=== PATIENT | male | born 1970 | race Caucasian/White ===

== ENCOUNTER 2018-06-02 14:55 | Emergency (ER) | payer MEDICAID ==
[~2018-06-02] VITALS: Ht 167.6 cm; Wt 96.0 kg
[~2018-06-02 14:55] MED LIST: NO MEDS
[2018-06-02 14:58] VITALS: BP 180/90; PULSE 87; RESP 16; Ht 167.6 cm; Wt 96.0 kg
[2018-06-02] MEDS ORDERED: IBUP-1542 PO (16:59)
--- NOTE | 2018-06-02 17:02 | ERD ---
ER Documentation Chief Complaint Chief Complaint DYSURIA X 3 DAYS HPI 47-year-old male presents with sensation of dysuria for last 3 days. Denies ear discharge, blood, fevers, vomiting, abdominal pain, flank pain. ROS All systems reviewed and are negative except as per history of present illness. Medications Home Meds Active Scripts Ibuprofen* (Motrin*) 600 Mg Tab, 600 MG PO Q6, #15 TAB Prov:NARESH RUBIN MD 06/02/18 Reported Medications [No Meds] No Conflict Check 02/19/10 Allergies Allergies: Coded Allergies: No Known Allergies (Verified Allergy, Mild, 02/19/10) PMhx/Soc History of Surgery: No Anesthesia Reaction: No Hx Neurological Disorder: No Hx Respiratory Disorders: No Hx Cardiac Disorders: No Hx Psychiatric Problems: No Hx Miscellaneous Medical Probl: No Hx Alcohol Use: No Hx Substance Use: No Hx Tobacco Use: No FmHx Family History: No diabetes, No coronary disease, No other Physical Exam Vitals Vital Signs Date Temp Pulse Resp B/P (MAP) Pulse Ox O2 O2 Flow FiO2 Time Delivery Rate 06/02/18 97.7 87 16 180/90 97 14:58 (120) Physical Exam Const: No acute distress Head: Atraumatic Eyes: Normal Conjunctiva ENT: Normal External Ears, Nose and Mouth. Neck: Full range of motion. No meningismus. Resp: Clear to auscultation bilaterally Cardio: Regular rate and rhythm, no murmurs Abd: Soft, non tender, non distended. Normal bowel sounds. General exam-testicles nontender descended normal size bilaterally. No penile discharge. No external genital lesions. Skin: No petechiae or rashes Back: No midline or flank tenderness Ext: No cyanosis, or edema Neur: Awake and alert Psych: Normal Mood and Affect Results 24 hrs Laboratory Tests Test 06/02/18 15:43 06/02/18 16:54 Urine Color YELLOW Urine Clarity CLEAR Urine pH 5.0 Urine Specific Reeves 1.019 Urine Ketones NEGATIVE mg/dL Urine Nitrite NEGATIVE mg/dL Urine Bilirubin NEGATIVE mg/dL Urine Urobilinogen NEGATIVE mg/dL Urine Leukocyte Esterase NEGATIVE Cassidy/ul Urine Hemoglobin NEGATIVE mg/dL Urine Glucose 1+ mg/dL Urine Total Protein NEGATIVE mg/dl Bedside Glucose 150 mg/dL Procedures/MDM Urine is normal except for 1+ glucose. Accu-Chek is 150. Patient presents with history of uncertain etiology. Urine was sent for gonorrhea chlamydia. Patient has no signs of abdominal pain, additional concerning symptoms. Cause of symptoms uncertain but will treat with further observation at home, return precautions and primary care follow-up. Will recommend fluids and ibuprofen for pain. No evidence of torsion, signs to suggest appendicitis, intra-abdominal pathology. The patient was stable with no new complaints during the ER course. Clinically, there is no current evidence to suggest meningitis, sepsis, acute abdomen, pneumonia, stroke, acute coronary syndrome, pulmonary embolism, aortic dissection or any other emergent condition appearing to require further evaluation or hospitalization. Patient counseled regarding my diagnostic impression and care plan. Prior to discharge all questions answered. Pt agrees with treatment plan and understands strict return precautions. Pt is instructed to follow up with primary care provider within 24-48 hours. Precautionary instructions provided including instructions to return to the ER if not improving or for any worsening or changing symptoms or concerns. Departure Diagnosis: Primary Impression: Dysuria Condition: Stable Patient Instructions: Dysuria Referrals: DOCTOR,NOT ON STAFF (PCP) Additional Instructions: Examines normal hoy. Cheque otro vez con [facility] doctor primario en el proximo myers or regresa para mas o nueva simptomas- fiebre, dolor en [place], vomito , louis. liz coelho. NARESH RUBIN MD Jun 02, 2018 17:02
== END 2018-06-02 17:08 | disposition home or self-care (01) ==
LOC: FTE 14:55
DX: R30.0 Dysuria (principal)
CPT/HCPCS: 81003; 82962; 87591; Z7502; 99283